=== PATIENT | female | born 1955 | race Caucasian/White ===

== ENCOUNTER 2018-09-29 09:27 | Emergency (ER) | payer OTHER, SELFPAY ==
[2018-09-29 09:32] VITALS: BP 115/83; PULSE 93; RESP 14; TEMP 36.4; O2SAT 98; BMI 33.5
[2018-09-29 10:15] LABS: Add Manual Diff / Slide Review NO; Basophils Percent Auto 2.3 % (0-2); Eosinophils Percent Auto 6.1 % (2-4); Hematocrit 34.5 % (36-46); Hemoglobin 10.8 g/dL (12.0-16.0); Lymphocytes Percent Auto 29.9 % (25-40); Mean Corpuscular HGB Conc 31.2 % (30-36); Mean Corpuscular Hemoglobin 23.5 PG (26-34); Mean Corpuscular Volume 75.5 fL (80-100); Monocytes Percent Auto 6.9 % (3-14); Neutrophils Absolute Auto 2700 /uL (1500-7000); Neutrophils Percent Auto 54.8 % (50-75); Platelet Count 401 X10^3/uL (150-400); Red Blood Cell Count 4.57 X10^6/uL (4.0-5.2); Red Cell Distribution Width 23.3 % (11.6-14.8); White Blood Cell Count 4.9 X10^3/uL (4.5-11.0)
[2018-09-29 10:16] LABS: Prothrombin Time 11.6 SECONDS (10.1-12.7)
[2018-09-29 10:19] LABS: Alanine Aminotransferase 20 IU/L (9-52); Albumin 4.2 g/dL (3.5-5.0); Albumin Globulin Ratio 1.4 (1.0-2.8); Alkaline Phosphatase 89 U/L (38-126); Aspartate Aminotransferase 18 IU/L (14-36); BUN Creatinine Ratio 18.8 (6-22); Bilirubin Total 0.5 mg/dL (0.2-1.3); Blood Urea Nitrogen 15 mg/dL (7-17); Calcium 9.3 mg/dL (8.4-10.2); Carbon Dioxide 22 mmol/L (22-32); Chloride 105 mmol/L (98-107); Estimated Glomerular Filt Rate > 60.0 mL/min (>60); Glucose 104 mg/dL (80-110); HEMOLYSIS < 15 (0-50); Lipase 140 U/L (23-300); PTT Partial Thromboplastin Tim 29 SECONDS (26.4-36.2); Potassium 3.9 mmol/L (3.4-5.1); Sodium 143 mmol/L (137-145); Total Protein 7.2 g/dL (6.3-8.2)
[2018-09-29] MEDS: PANTOPRAZOLE 40 MG VIAL IV (10:32)
[2018-09-29] MEDS: ONDANSETRON 4 MG/2 ML INJ IV (10:32)
[2018-09-29 10:33] LABS: Anisocytosis 1+
[2018-09-29 10:51] VITALS: BP 105/84; BP 113/76; BP 99/78; PULSE 79; PULSE 89; PULSE 98
[2018-09-29 10:52] VITALS: BP 113/76; PULSE 80; RESP 18; O2SAT 94
[2018-09-29] MEDS: SODIUM CHLORIDE 0.9% 1,000 ML 1000 ML IV (11:23)
--- NOTE | 2018-09-29 11:23 | ED_ITS ---
HPI - GI Bleed General Chief complaint: GI Bleed Stated complaint: LIGHT HEADED,THROW UP, INTERAL BLEEDING Time Seen by Provider: 09/29/18 11:11 Source: patient and family (Daughter) Mode of arrival: ambulatory Limitations: no limitations History of Present Illness HPI Narrative: This is a 63-year-old female comes in with concern for GI bleed. Patient states she has a history of GI bleeds she has received up to 4 units of blood at a time. Most recent was at the beginning of September. She has had EGD as well as colonoscopy, she has done the GI camera as well as had a CT looking for bleeding. They have never found the source. Before she has had melanotic stools. Today she felt nauseated felt a little bit dizzy Um and just on not feel well. She had some mild abdominal pain but has a hernia that sometimes gives her problems this was the area of discomfort. Patient states she has had no fevers, no chest pain or shortness of breath. She has not had any melanotic stools or bright red blood. She has not had any vomiting. She does take PPI daily. She is visiting family from [place]. She otherwise denies any other medical issues. Related Data Home Medications Medication Instructions Recorded Confirmed pantoprazole 40 mg PO DAILY 09/29/18 09/29/18 Allergies Allergy/AdvReac Type Severity Reaction Status Date / Time codeine Allergy Severe Vomiting Verified 09/29/18 09:36 Review of Systems Review of Systems All systems reviewed & are unremarkable except as noted in HPI and below Constitutional Denies chills, Reports fatigue, Denies fever(s) and Denies lethargy ENT Ears, Nose, Mouth, and Throat: Reports dizziness Cardiovascular Denies chest pain, Denies diaphoresis, Denies syncope, Denies irregular heart rhythm, Denies lightheadedness, Denies palpitations, Denies dyspnea and Denies orthopnea Respiratory Denies chest congestion, Denies cough, Denies dyspnea and Denies wheezing Gastrointestinal Gastrointestinal: Reports abdominal pain (mild), Denies melena, Denies hematochezia, Denies change in bowel habits, Reports change in stool character ( a little more frequent, no diarrhea, not loose), Denies constipation, Denies diarrhea, Denies nausea, Denies vomiting and Denies hematemesis Genitourinary Denies hematuria, Denies dysuria, Denies flank pain, Denies urinary incontinence and Denies urinary urgency Neurologic Reports dizziness and Denies syncope Endocrine Reports fatigue and Denies palpitations Allergic/Immunologic Denies wheezing PFSH Medical History GI bleed (Acute) Surgical History H/O colonoscopy (Acute) History of esophagogastroduodenoscopy (Acute) Social History Smoking Status: Never smoker Exam Narrative Exam Narrative: GENERAL: Alert and oriented x three, moderately obese, well- appearing female in mild distress. HEENT: Head normocephalic, atraumatic, EOMI, pupils reactive, face symmetric, moist mucous membranes NECK: Supple, full range of motion CARDIOVASCULAR: Regular rate and rhythm without murmurs, rubs or gallops. RESPIRATORY: Breath sounds equal bilaterally, no wheezes rales or rhonchi. ABDOMEN: Soft, nontender. Normoactive bowel sounds all 4 quadrants. No guarding or rebound, rigidity, no mass. On digital rectal exam patient has external hemorrhoids. Stool occult is negative. No mass noted. : No CVA tenderness EXTREMITIES: Normal range of motion, no clubbing or edema. Neurovascularly intact NEUROLOGICAL: Cranial nerves II through XII grossly intact. Moving all extremities SKIN: Warm, dry, no petechiae, no rashes or lesions. Initial Vital Signs Initial Vital Signs: Vital Signs Temperature 97.6 F 09/29/18 09:32 Pulse Rate 93 H 09/29/18 09:32 Respiratory Rate 14 09/29/18 09:32 Blood Pressure 115/83 09/29/18 09:32 Pulse Oximetry 98 09/29/18 09:32 Course Orders Ordered: ED Orders 09/29/18 11:24 CT abdomen pelvis w con Stat Discontinued Medications Sodium Chloride (Normal Saline 0.9%) 1,000 mls @ 1,000 mls/hr IV BOLUS ONE Stop: 09/29/18 12:20 Last Infusion: 09/29/18 13:17 Dose: 0 mls/hr Admin: 09/29/18 11:23 Dose: 1,000 mls/hr Ondansetron HCl (Zofran) 4 mg IV NOW ONE Stop: 09/29/18 09:46 Last Admin: 09/29/18 10:32 Dose: 4 mg Pantoprazole Sodium (Protonix) 40 mg IV NOW ONE Stop: 09/29/18 10:32 Last Admin: 09/29/18 10:32 Dose: 40 mg Vital Signs - 8 hr 09/29/18 12:25 09/29/18 13:30 09/29/18 13:34 Pulse Rate 68 64 Pulse Rate [Orthostatic Lying] 66 Pulse Rate [Orthostatic Sitting] 76 Pulse Rate [Orthostatic Standing] 86 Respiratory Rate 17 20 Blood Pressure [Left Arm] 116/78 116/73 Blood Pressure [Orthostatic Lying] 112/68 Blood Pressure [Orthostatic Sitting] 114/76 Blood Pressure [Orthostatic Standing] 118/74 Pulse Oximetry 96 96 MDM - GI Bleed Lab Data Attestation: I reviewed the patient's lab results. Result diagrams: 09/29/18 09:59 09/29/18 09:59 Lab Results 09/29/18 09/29/18 09/29/18 Range/Units 09:59 09:59 09:59 WBC 4.9 (4.5-11.0) X10^3/uL RBC 4.57 (4.0-5.2) X10^6/uL Hgb 10.8 L (12.0-16.0) g/dL Hct 34.5 L (36-46) % MCV 75.5 L (80-100) fL MCH 23.5 L (26-34) PG MCHC 31.2 (30-36) % RDW 23.3 H (11.6-14.8) % Plt Count 401 H (150-400) X10^3/uL Neut % (Auto) 54.8 (50-75) % Lymph % (Auto) 29.9 (25-40) % [place] % (Auto) 6.9 (3-14) % Eos % (Auto) 6.1 H (2-4) % Baso % (Auto) 2.3 H (0-2) % Neut # (Auto) 2700 (6649-2617) /uL RBC Morphology Not Reportable Anisocytosis 1+ H PT 11.6 (10.1-12.7) SECONDS INR 1.0 (0.9-1.3) APTT 29 (26.4-36.2) SECONDS Sodium 143 (137-145) mmol/L Potassium 3.9 (3.4-5.1) mmol/L Chloride 105 (98-107) mmol/L Carbon Dioxide 22 (22-32) mmol/L BUN 15 (7-17) mg/dL Creatinine 0.80 (0.52-1.04) mg/dL Estimated GFR > 60.0 (>60) mL/min BUN/Creatinine Ratio 18.8 (6-22) Glucose 104 (80-110) mg/dL Calcium 9.3 (8.4-10.2) mg/dL Total Bilirubin 0.5 (0.2-1.3) mg/dL AST 18 (14-36) IU/L ALT 20 (9-52) IU/L Alkaline Phosphatase 89 (38-126) U/L Total Protein 7.2 (6.3-8.2) g/dL Albumin 4.2 (3.5-5.0) g/dL Globulin 3.0 (1.7-4.1) g/dL Albumin/Globulin Ratio 1.4 (1.0-2.8) Lipase 140 (23-300) U/L Blood Type Antibody Screen 09/29/18 Range/Units 09:59 WBC (4.5-11.0) X10^3/uL RBC (4.0-5.2) X10^6/uL Hgb (12.0-16.0) g/dL Hct (36-46) % MCV (80-100) fL MCH (26-34) PG MCHC (30-36) % RDW (11.6-14.8) % Plt Count (150-400) X10^3/uL Neut % (Auto) (50-75) % Lymph % (Auto) (25-40) % [place] % (Auto) (3-14) % Eos % (Auto) (2-4) % Baso % (Auto) (0-2) % Neut # (Auto) (1276-5509) /uL RBC Morphology Anisocytosis PT (10.1-12.7) SECONDS INR (0.9-1.3) APTT (26.4-36.2) SECONDS Sodium (137-145) mmol/L Potassium (3.4-5.1) mmol/L Chloride (98-107) mmol/L Carbon Dioxide (22-32) mmol/L BUN (7-17) mg/dL Creatinine (0.52-1.04) mg/dL Estimated GFR (>60) mL/min BUN/Creatinine Ratio (6-22) Glucose (80-110) mg/dL Calcium (8.4-10.2) mg/dL Total Bilirubin (0.2-1.3) mg/dL AST (14-36) IU/L ALT (9-52) IU/L Alkaline Phosphatase (38-126) U/L Total Protein (6.3-8.2) g/dL Albumin (3.5-5.0) g/dL Globulin (1.7-4.1) g/dL Albumin/Globulin Ratio (1.0-2.8) Lipase (23-300) U/L Blood Type O Positive Antibody Screen Negative Point of Care Testing Stool Occult Blood Negative Imaging Data CT scan - abdomen: Radiologist's impression: [address] [address] [address] Scan Report Signed Patient: JHON REDDY V MR#: [id number] : 1955 Acct:[id number] Age/Sex: 63 / F Date of Service: 09/29/18 Loc: ED Accession Number: [id number] Procedure: CT abdomen pelvis w con Ordering Provider: Jessica Quiles D.O. PROCEDURE: CT ABDOMEN PELVIS W CON INDICATIONS: hx of gi bleeds, nausea/lightheaded, dizzy TECHNIQUE: After the administration of intravenous contrast, 5 mm thick sections acquired from the diaphragm to the symphysis. 5 mm coronal and sagittal reformats were acquired. For radiation dose reduction, the following was used: automated exposure control, adjustment of mA and/or kV according to patient size. COMPARISON: None. FINDINGS: Image quality: Excellent. ABDOMEN: Lung bases: Lung bases are clear. Heart size is enlarged. Solid organs: Liver is normal in size and enhancement. There is mild hepatic steatosis. Gallbladder is surgically absent. Biliary system is non dilated. Pancreas enhances normally. Spleen is normal in size and enhancement. No adrenal nodules. Kidneys demonstrate normal size and enhancement, without hydronephrosis. Peritoneum and bowel: Moderate to large hiatal hernia is seen. There is no evidence of bowel structure. No gross bowel wall thickening or mesenteric fat stranding.. Sigmoid diverticulosis is seen with no CT evidence of acute diverticulitis. No free fluid or free air. The appendix is not definitively identified. Nodes and vessels: No retroperitoneal or mesenteric adenopathy by size criteria. Aorta and inferior vena cava are normal in size. Miscellaneous: Post surgical changes from previous ventral hernia repair is seen. PELVIS: Genitourinary: Bladder wall thickness is normal. Miscellaneous: No inguinal hernias or adenopathy. Bones: No suspicious bony lesions. No vertebral body compression fractures. IMPRESSION: 1. Moderate to large hiatal hernia. Post surgical changes from previous ventral hernia repair. No bowel structure. No abnormal bowel wall thickening. No free fluid or free air. Sigmoid diverticulosis with no evidence of acute diverticulitis. 2. No obstructing renal stone hydronephrosis. Mild hepatic steatosis. Prior cholecystectomy. 3. Mild cardiomegaly. Dictated by: Cyril Strickland M.D. on 09/29/2018 at 11:40 Approved by: Cyril Strickland M.D. on 09/29/2018 at 11:51 MDM Narrative Medical decision making narrative: Discussed with Dr. Vela, stool occult negative. Orthostatics positive. Hgb 10, last at [facility] chart was 9.5 on 09/12. At this time would recommend increase protonix to 40mg BID and return if new symptoms but no clear source of active bleed, she suspects patient may get gastritis causing bleeds. Reviewed stay records from [facility] hospital note. To recheck blood pressure after fluids. Patient was able to walk to the bathroom without any major issue before her fluids were completed. Discussed plan she is comfortable with this as well as increasing her PPI and plan to return to the emergency department if she has any new changes such as melanotic stools or other concerning symptoms, Recheck pressure after fluids patient has not been hypotensive since, she had orthostatics did change a little bit but was completely asymptomatic and she feels a lot better after the fluids. We plan to let her discharge home but have her return if she is having any worsening symptoms. Patient is very comfortable with this plan. Discharge Plan Departure Patient Disposition: Home Clinical Impression: Nausea, History of GI bleed Discharge Date/Time: 09/29/18 13:50 Interventions: ED Discharge Assessment Last Done: 09/29/18 13:50 Instructions: Gastrointestinal Bleeding Activity Restrictions/Additional Instructions: Follow up with your physician when you return home if no additional symptoms. Continue pantoprazole, take twice daily. Return to ER for new or worsening symptoms, black or bright red stools, passing out, shortness of breath, chest pain, new weakness, or other concerning signs/ symptoms. Prescriptions: No Action pantoprazole 40 mg tablet,delayed release (DR/EC) 40 mg PO DAILY RF: 0
[2018-09-29 12:25] VITALS: BP 116/78; PULSE 68; RESP 17; O2SAT 96
[2018-09-29 13:30] VITALS: BP 112/68; BP 114/76; BP 118/74; PULSE 66; PULSE 76; PULSE 86
[2018-09-29 13:34] VITALS: BP 116/73; PULSE 64; RESP 20; O2SAT 96
== END 2018-09-29 13:50 | disposition home or self-care (01) ==
PROVIDERS: Emergency Provider Emergency Medicine
DX: R11.0 Nausea (principal); R42 Dizziness and giddiness; Z87.19 Personal history of other diseases of the digestive system
CPT/HCPCS: 36591; 74177; 80053; 82272; 83690; 85025; 85610; 85730; 86850; 86900; 86901; 93005; 96361; 96374; 96375; 99283; 99285; C9113; J2405; Q9967